=== PATIENT | male | born 1935 | race Caucasian/White ===

== ENCOUNTER → 2022-01-30 13:31 | Outpatient (CLI) | payer MEDICARE, BC, SELFPAY ==
--- NOTE | 2022-01-30 | DI.CT.S_ITS ---
PROCEDURE: CT ABDOMEN LIVER PROTOCOL INDICATIONS: Abnormal results of liver function studies TECHNIQUE: 4 phase scanning was performed. Non-contrast 5 mm axial sections acquired from the diaphragm to the iliac crests. Following the administration of intravenous contrast, 5 mm thick arterial-phase, portal venous-phase, and 5-minute delayed phase images were acquired through the liver. 5 mm thick coronal and sagittal reformats were performed. For radiation dose reduction, the following was used: automated exposure control, adjustment of mA and/or kV according to patient size. COMPARISON: None. FINDINGS: Image quality: Excellent. Lung bases: Scattered scarring/atelectasis. Liver: No suspicious mass. Other solid organs: Gallbladder is under distended. No biliary ductal dilation. Pancreas is within normal limits. There is a duodenal diverticulum adjacent to the ampulla. Normal spleen size. No adrenal nodules. Dominant right renal simple cyst. Bosniak 1 and 2 renal lesions are present, for which no dedicated followup is necessary per 2019 proposed guidelines. There are punctate renal calculi. No hydronephrosis. Incidental note of a 1.3 cm enhancing left upper pole renal mass. The renal vein is patent. Nodes and vessels: No abdominal aortic aneurysm. There are atherosclerotic calcifications. No pathologic adenopathy by size criteria. Bowel and peritoneum: No pathologic ascites. There is a moderate hiatal hernia. No bowel obstruction. Bones: No acute or suspicious osseous findings. There are degenerative changes. Miscellaneous: No ventral hernias. IMPRESSION: No significant CT abnormality of the liver. No explanation identified for LFT abnormalities. Incidentally noted 1.3 cm left upper pole renal mass, with most concerning differential possibility being renal cell carcinoma. The left renal vein is patent at this time. Other incidental findings above. Dictated by: Mahesh Fisher M.D. on 01/30/2022 at 16:44 Approved by: Mahesh Fisher M.D. on 01/30/2022 at 16:49
== END ==
PROVIDERS: Family Provider Family Medicine; PCP Internal Medicine; Referring Provider Internal Medicine; Visit Provider Internal Medicine
DX: N28.89 Other specified disorders of kidney and ureter (principal); R94.5 Abnormal results of liver function studies
CPT/HCPCS: 74170; Q9967

== ENCOUNTER → 2022-05-02 14:44 | Outpatient (CLI) | payer MEDICARE, BC, SELFPAY ==
[2022-05-02 15:36] LABS: Estimated Glomerular Filt Rate 51 mL/min (>60)
== END ==
PROVIDERS: Family Provider Family Medicine; PCP Internal Medicine; Referring Provider Radiology Diagnostic Radiology; Visit Provider Radiology Diagnostic Radiology
DX: R94.5 Abnormal results of liver function studies (principal)
CPT/HCPCS: 36415; 82565

== ENCOUNTER → 2022-05-20 13:03 | Outpatient (CLI) | payer MEDICARE, BC, SELFPAY ==
--- NOTE | 2022-05-20 | DI.CT.S_ITS ---
PROCEDURE: CT ABDOMEN LIVER PROTOCOL INDICATIONS: ABNORMAL LFT'S TECHNIQUE: 4 phase scanning was performed. Non-contrast 5 mm axial sections acquired from the diaphragm to the iliac crests. Following the administration of intravenous contrast, 5 mm thick arterial-phase, portal venous-phase, and 5-minute delayed phase images were acquired through the liver. 5 mm thick coronal and sagittal reformats were performed. For radiation dose reduction, the following was used: automated exposure control, adjustment of mA and/or kV according to patient size. COMPARISON: [facility], CT, CT ABDOMEN LIVER PROTOCOL, 01/30/2022, 13:55. FINDINGS: Image quality: Excellent. Lung bases: Mild scarring in the lingula. Heart size is normal. Moderate hiatal hernia. Liver: No steatosis. Smooth contour. Other solid organs: Gallbladder is unremarkable. Biliary system is non dilated. Pancreas is normal in morphology. Spleen is normal in size and enhancement. No adrenal nodules. Both kidneys demonstrate normal size and enhancement. Punctate, nonobstructing stone in the inferior pole of the right kidney. Solid, enhancing mass in the superior pole of the left kidney measuring 1.7 cm. Nodes and vessels: No retroperitoneal or mesenteric adenopathy by size criteria. Aorta and inferior vena cava are normal in size. Bowel and peritoneum: Unenhanced bowel loops are normal in caliber. No free fluid or air. Bones: No suspicious bony lesions. No vertebral body compression fractures. Miscellaneous: No ventral hernias. IMPRESSION: 1. No acute liver findings to suggest elevated LFTs. No steatosis. 2. Enhancing mass along the superior pole of the left kidney measuring 1.7 cm in, renal cell carcinoma until proven otherwise. Recommend urology referral if not artery performed. Dictated by: Aristeo Herrera M.D. on 05/20/2022 at 16:19 Approved by: Aristeo Herrera M.D. on 05/20/2022 at 16:24
== END ==
PROVIDERS: Family Provider Family Medicine; PCP Internal Medicine; Referring Provider Internal Medicine; Visit Provider Internal Medicine
DX: C64.2 Malignant neoplasm of left kidney, except renal pelvis; R79.89 Other specified abnormal findings of blood chemistry
CPT/HCPCS: 74170; Q9967

== ENCOUNTER → 2022-05-21 12:59 | Outpatient (CLI) | payer MEDICARE, BC, SELFPAY ==
--- NOTE | 2022-05-21 | DI.RAD.S_ITS ---
PROCEDURE: XR T AND L SPINE 4 TO 5 VIEWS INDICATIONS: SCOLIOSIS EXAM TECHNIQUE: 2 views acquired of the thoracolumbar spine. COMPARISON: [facility], CR, XR THORACIC SPINE 2 VIEWS, 05/17/2019, 14:30. FINDINGS: Bones: No acute fractures or dislocations. Loss of height and multiple thoracic spine vertebral bodies is stable compared to prior exam. No acute vertebral body compression fracture. Mild L4-L5 anterolisthesis secondary to facet hypertrophy. Mild convex right curvature of the thoracic spine. Mild convex left curvature of the lumbar spine. Visualized inferior ribs appear intact. No suspicious bony lesions. Moderate degenerative disc changes noted throughout the thoracic spine. Mild facet hypertrophy throughout the thoracic spine. Soft tissues: No suspicious soft tissue calcifications. Left chest wall cardiac pacer. IMPRESSION: 1. Multilevel degenerative disc disease. 2. Multilevel facet arthropathy. 3. No fracture. No acute osseous lesion. If symptoms and/or clinical suspicion for pathology persists, evaluation with MRI should be considered for further assessment. 4. Mild convex right thoracic spine and mild convex left lumbar spine curvature. 5. Grade 1 L4-L5 degenerative spondylolisthesis. Dictated by: Shruthi Green MD, PhD on 05/21/2022 at 14:12 Approved by: Shruthi Green MD, PhD on 05/21/2022 at 14:15
== END ==
PROVIDERS: Family Provider Family Medicine; PCP Internal Medicine; Referring Provider Internal Medicine; Visit Provider Internal Medicine
DX: M41.9 Scoliosis, unspecified (principal); M51.34 Other intervertebral disc degeneration, thoracic region; M47.814 Spondylosis without myelopathy or radiculopathy, thoracic region; Z95.0 Presence of cardiac pacemaker
CPT/HCPCS: 72083

== ENCOUNTER → 2022-09-19 11:19 | Outpatient (CLI) | payer MEDICARE, BC, SELFPAY ==
--- NOTE | 2022-09-19 | DI.CT.S_ITS ---
PROCEDURE: CT ABDOMEN RENAL PROTOCOL INDICATIONS: RENAL MASS TECHNIQUE: Optional 5 mm thick noncontrast images acquired from the diaphragm to the iliac crests. After the administration of intravenous contrast, 5 mm thick images again acquired from the diaphragm to the iliac crests in the arterial and urographic phases. 5 mm thick coronal and sagittal reformats were then acquired. For radiation dose reduction, the following was used: automated exposure control, adjustment of mA and/or kV according to patient size. COMPARISON: None. FINDINGS: Image quality: Excellent. Lung bases: Lung bases are clear. Heart size is normal. Moderate hiatal hernia Genitourinary: Enhancing, 1.7 x 1.6 x 1.7 cm exophytic mass on the superior pole of the left kidney. Bilateral renal cystic lesions without perceived complexity. No retroperitoneal adenopathy. No extension beyond the perirenal fascia. Renal vein is widely patent. Punctate nonobstructing right-sided nephrolithiasis. No hydronephrosis. Other solid organs: Liver is normal in size and enhancement. Gallbladder is unremarkable . Biliary system is non dilated. Pancreas enhances normally. Spleen is normal in size and enhancement. No adrenal nodules. Peritoneum and bowel: Unenhanced bowel loops are normal in wall thickness and caliber. No free fluid or air. Nodes and vessels: No retroperitoneal or mesenteric adenopathy by size criteria. Aorta and inferior vena cava are normal in caliber. Bones: No suspicious bony lesions. No vertebral body compression fractures. Miscellaneous: No ventral hernias. IMPRESSION: Enhancing, 1.7 x 1.6 x 1.7 cm exophytic mass on the superior pole of the left kidney. No retroperitoneal adenopathy. No extension beyond the perirenal fascia. Renal vein is widely patent. Findings are most consistent with renal cell carcinoma. Recommend urology referral. Dictated by: Aristeo Herrera M.D. on 09/19/2022 at 12:58 Approved by: Aristeo Herrera M.D. on 09/19/2022 at 13:03
[2022-09-19 11:55] LABS: Estimated Glomerular Filt Rate > 60 mL/min (>60)
== END ==
PROVIDERS: Radiology Diagnostic Radiology; Family Provider Family Medicine; PCP Internal Medicine; Referring Provider Internal Medicine; Visit Provider Internal Medicine
DX: N28.89 Other specified disorders of kidney and ureter (principal)
CPT/HCPCS: 36415; 74170; 82565

== ENCOUNTER → 2023-04-08 11:53 | Outpatient (CLI) | payer MEDICARE, BC, SELFPAY ==
--- NOTE | 2023-04-08 | DI.CT.S_ITS ---
PROCEDURE: CT ABDOMEN RENAL PROTOCOL INDICATIONS: left renal mass TECHNIQUE: Optional 5 mm thick noncontrast images acquired from the diaphragm to the iliac crests. After the administration of intravenous contrast, 5 mm thick images again acquired from the diaphragm to the iliac crests in the arterial and urographic phases. 5 mm thick coronal and sagittal reformats were then acquired. For radiation dose reduction, the following was used: automated exposure control, adjustment of mA and/or kV according to patient size. COMPARISON: [facility], CT, CT ABDOMEN RENAL PROTOCOL, 09/19/2022, 12:05. FINDINGS: Image quality: Diagnostic Lower chest: Basal scarring and atelectasis again seen. Partially visualized cardiac electrode leads. Postsurgical changes at the gastroesophageal junction with a [id number] hernia, as before. Liver: Liver is unremarkable. Gallbladder and biliary system: Unremarkable, nondilated Pancreas: Ksch-an-rjycvado atrophy. No ductal dilation Spleen: Nonenlarged Adrenals: No nodules Kidneys: There is scattered cysts, the largest in the right upper pole as before measuring up to 9 centimeters. No hydronephrosis. In enhancing lesion in the left upper pole measures 1.7 centimeters, unchanged compared to September 2022. This is mildly exophytic and does not extend beyond the anterior pararenal fascia. The left renal vein is patent. The collecting system shows no definite filling defects. Right nonobstructing renal calculus. Vessels and lymph nodes: The main portal vein is patent. Atherosclerotic calcifications without abdominal aortic aneurysm. No pathologic lymph nodes by size criteria. Bowel and peritoneum: No evidence of small bowel obstruction. There is no pathologic ascites. Body wall: Unremarkable Bones: Degenerative changes. Small sclerotic lesions, for example in the right posterior iliac bone, may represent bone islands and sequela of prior degenerative changes. No overtly suspicious finding. IMPRESSION: Left upper pole enhancing renal mass is unchanged compared to September of 2022. No lymphadenopathy by size criteria. The left renal vein is patent. Other findings as above. Dictated by: Mahesh Fisher M.D. on 04/08/2023 at 14:03 Approved by: Mahesh Fisher M.D. on 04/08/2023 at 14:08
[2023-04-08 12:42] LABS: Estimated Glomerular Filt Rate > 60 mL/min (>60)
== END ==
PROVIDERS: Radiology Diagnostic Radiology; Family Provider Family Medicine; PCP Internal Medicine; Referring Provider Urology; Visit Provider Urology
DX: N28.89 Other specified disorders of kidney and ureter (principal)
CPT/HCPCS: 36415; 74170; 82565

== ENCOUNTER → 2025-03-15 14:42 | Outpatient (CLI) | payer MEDICARE, BC, SELFPAY ==
[2025-03-15 15:20] LABS: Alanine Aminotransferase 43 IU/L (<50); Albumin 4.1 g/dL (3.5-5.0); Albumin Globulin Ratio 1.2 (1.0-2.8); Alkaline Phosphatase 112 U/L (38-126); Blood Urea Nitrogen 29 mg/dL (9-20); Calcium 9.4 mg/dL (8.4-10.2); Carbon Dioxide 26 mmol/L (22-32); Chloride 107 mmol/L (98-107); Estimated Glomerular Filt Rate 58 mL/min (>60); Globulin 3.4 g/dL (1.7-4.1); Glucose 139 mg/dL (70-99); HEMOLYSIS < 15 (0-50); Potassium 4.5 mmol/L (3.4-5.1); Sodium 140 mmol/L (137-145); Total Protein 7.5 g/dL (6.3-8.2)
== END ==
PROVIDERS: PCP Internal Medicine; Referring Provider Internal Medicine Cardiovascular Disease; Visit Provider Internal Medicine Cardiovascular Disease
DX: R17 Unspecified jaundice (principal)
CPT/HCPCS: 36415; 80053

== ENCOUNTER 2025-04-05 15:25 | Emergency (ER) | payer MEDICARE, BC, SELFPAY ==
[2025-04-05] VITALS (26 sets, daily range): BP systolic 97–130; BP diastolic 54–69; PULSE 69–98; RESP 18–36; TEMP 36.7–36.8; O2SAT 92–96; BMI 28.5
--- NOTE | 2025-04-05 15:46 | DI.RAD.S_ITS ---
PROCEDURE: XR CHEST 1V INDICATIONS: Shortness of breath TECHNIQUE: One view of the chest was acquired. COMPARISON: None. FINDINGS: Surgical changes and devices: Left-sided cardiac pacer device is in place. Lungs and pleura: Lungs are clear. No pleural effusions or pneumothorax. Mediastinum: Mediastinal contours appear normal. Heart size is normal. Bones and chest wall: No suspicious bony lesions. Overlying soft tissues appear unremarkable. IMPRESSION: No acute cardiopulmonary abnormalities or focal consolidation. Dictated by: Herminio Buchanan M.D. on 04/05/2025 at 16:41 Approved by: Herminio Buchanan M.D. on 04/05/2025 at 16:41
--- NOTE | 2025-04-05 16:02 | ED_ITS ---
HPI - SOB/Dyspnea General Chief Complaint: Shortness of Breath/Dyspnea Stated Complaint: PC ref, cardioversion Time Seen by Provider: 04/05/25 16:02 Source: patient Mode of arrival: Ambulatory Limitations: no limitations History of Present Illness HPI Narrative: 89-year-old gentleman history of atrial fibrillation on metoprolol and Eliquis presents with shortness of breath and atrial fibrillation according to patient on his BP machine. He denies any active chest pain, back pain, abdominal pain, nausea, vomiting, leg pain, leg swelling, chills, body aches. Other than what is stated 14 point review system is negative. Related Data Allergies Allergy/AdvReac Type Severity Reaction Status Date / Time nitroglycerin AdvReac Severe Unconscious Verified 04/05/25 15:34 Review of Systems Review of Systems ROS Unobtainable: All systems reviewed & are unremarkable except as noted in HPI and below Patient History Social History Smoking Status: Never smoker Smoking Status: Never smoker Exam Narrative Exam Narrative: GENERAL: [89] year old patient appears stated age. Well-developed patient, in mild distress. HEAD: Atraumatic. Normocephalic. EYES: Pupils equal round and reactive. Extraocular motions intact. No scleral icterus. No injection or drainage. ENT: Nose without bleeding, purulent drainage. Throat without erythema, tonsillar hypertrophy or exudate. Airway patent. NECK: Trachea midline. Non tender CARDIOVASCULAR: irregularly irregular rate and rhythm without murmurs, gallops, or rubs. RESPIRATORY: Clear to auscultation. Breath sounds equal bilaterally. No wheezes, rales, or rhonchi. GASTROINTESTINAL: Abdomen soft, non-tender, nondistended. EXTREMITIES: No edema or joint tenderness. BACK: Nontender without deformity or crepitance. No flank tenderness. NEURO: AOx3. SKIN: No rash or erythema of visible areas Initial Vital Signs Initial Vital Signs: Vital Signs Temperature 98.1 F 04/05/25 15:34 Pulse Rate 82 04/05/25 15:34 Respiratory Rate 18 04/05/25 15:34 Blood Pressure 116/69 04/05/25 15:34 Pulse Oximetry 95 04/05/25 15:34 Oxygen Delivery Method Room Air 04/05/25 15:34 Course Orders Ordered: ED Orders 04/05/25 15:46 XR chest 1V Stat EKG-12 Lead Stat Measure peak expiratory flow STAT RT Consult Eval and Treat STAT 04/05/25 16:05 Comprehensive Metabolic Panel Stat Lactate (Lactic Acid) Stat NT-proBNP (BNP-Adult 18+) Stat Prothrombin Time INR Stat Troponin I Stat 04/05/25 17:49 Complete Blood Count AUTO DIFF Stat 04/05/25 19:00 Troponin I Stat Discontinued Medications Diltiazem HCl (Diltiazem 25 Mg/5 Ml Sdv) 25 mg IV NOW ONE Stop: 04/05/25 18:02 Last Admin: 04/05/25 18:35 Dose: 25 mg Documented By: FLEX Vital Signs Vital signs: Vital Signs - 8 hr 04/05/25 15:34 04/05/25 18:10 04/05/25 18:10 Temperature 98.1 F Pulse Rate 82 98 H Respiratory Rate 18 Blood Pressure 116/69 107/67 Pulse Oximetry 95 96 Oxygen Delivery Method Room Air 04/05/25 18:30 04/05/25 18:30 04/05/25 18:35 Temperature Pulse Rate 73 81 Respiratory Rate Blood Pressure 115/66 115/66 Pulse Oximetry 95 Oxygen Delivery Method 04/05/25 18:39 04/05/25 18:39 04/05/25 18:49 Temperature Pulse Rate 89 Respiratory Rate 24 Blood Pressure 118/64 99/54 L Pulse Oximetry 95 Oxygen Delivery Method 04/05/25 18:49 04/05/25 18:51 04/05/25 18:51 Temperature Pulse Rate 69 69 Respiratory Rate 23 19 Blood Pressure 97/59 L Pulse Oximetry 93 93 Oxygen Delivery Method 04/05/25 18:55 04/05/25 18:55 04/05/25 19:00 Temperature Pulse Rate 69 69 Respiratory Rate 22 20 Blood Pressure 103/60 Pulse Oximetry 92 94 Oxygen Delivery Method 04/05/25 19:00 Temperature Pulse Rate Respiratory Rate Blood Pressure 110/63 Pulse Oximetry Oxygen Delivery Method MDM - SOB/Dyspnea Lab Data 04/05/25 17:49 04/05/25 16:05 Labs: Lab Results 04/05/25 04/05/25 04/05/25 Range/Units 16:05 17:49 19:00 WBC 7.9 (4.5-11.0) X10^3/uL RBC 4.27 L (4.5-5.9) X10^6/uL Hgb 14.2 (13.5-17.5) g/dL Hct 41.1 (41-53) % MCV 96.2 (80-100) fL MCH 33.2 (26-34) PG MCHC 34.5 (30-36) % RDW 16.1 H (11.6-14.8) % Plt Count 137 L (150-400) X10^3/uL Neut % (Auto) 60.2 (50-75) % Lymph % (Auto) 29.2 (25-40) % Preston % (Auto) 8.0 (3-14) % Eos % (Auto) 2.0 (2-4) % Baso % (Auto) 0.6 (0-2) % Neut # (Auto) 4800 (4513-6411) /uL Lymph # (Auto) 2300 (7408-9649) /uL Preston # (Auto) 600 (0-900) /uL Eos # (Auto) 200 (0-450) /uL Baso # (Auto) 0 (0-100) /uL PT 15.1 H (9.4-12.5) SECONDS INR 1.3 (0.9-1.3) Sodium 138 (137-145) mmol/L Potassium 4.2 (3.4-5.1) mmol/L Chloride 109 H (98-107) mmol/L Carbon Dioxide 20 L (22-32) mmol/L BUN 27 H (9-20) mg/dL Creatinine 1.25 (0.66-1.25) mg/dL Estimated GFR 55 L (>60) mL/min BUN/Creatinine Ratio 21.6 (6-22) Glucose 180 H (70-99) mg/dL Lactate 1.3 (0.7-2.1) mmol/L Calcium 9.1 (8.4-10.2) mg/dL Total Bilirubin 0.5 (0.2-1.3) mg/dL AST 33 (17-59) IU/L ALT 30 (<50) IU/L Alkaline Phosphatase 135 H (38-126) U/L Troponin I 0.018 0.017 (0.01-0.034) ng/mL NT-Pro-B Natriuret Pep 1650 H (<450) pg/mL Total Protein 7.1 (6.3-8.2) g/dL Albumin 3.8 (3.5-5.0) g/dL Globulin 3.3 (1.7-4.1) g/dL Albumin/Globulin Ratio 1.2 (1.0-2.8) Imaging Data Chest x-ray: Radiologist's Impression: [address] [address] XRay Report Signed Patient: Danyel Espinoza MR#: [id number] : 1935 Acct:[id number] Age/Sex: 89 / M Date of Service: 04/05/25 Loc: ED Accession Number: [id number] Procedure: XR chest 1V Ordering Provider: Halley Yoo D.O. PROCEDURE: XR CHEST 1V INDICATIONS: Shortness of breath TECHNIQUE: One view of the chest was acquired. COMPARISON: None. FINDINGS: Surgical changes and devices: Left-sided cardiac pacer device is in place. Lungs and pleura: Lungs are clear. No pleural effusions or pneumothorax. Mediastinum: Mediastinal contours appear normal. Heart size is normal. Bones and chest wall: No suspicious bony lesions. Overlying soft tissues appear unremarkable. IMPRESSION: No acute cardiopulmonary abnormalities or focal consolidation. ECG Data Interpretation: V paced HR 70 MDM Narrative Medical decision making narrative: All lab work vital signs nurse triage note medication list previous ER visits in all imaging studies reviewed. EKG showed atrial flutter 101 hr s/p diltiazem 25mg IV x1 now V paced. NO cardioversion. 2 sets troponin negative. Cxr no acute process. Differential diagnosis AFib a flutter RVR. While patient follow up with public speaking professor. Case d/w no cardioversion after diltiazem. Discharge Plan Departure Patient Disposition: Home Clinical Impression: Atrial fibrillation and flutter Instructions: DI for Atrial Fibrillation Activity Restrictions/Additional Instructions: Return with new or worsening symptoms. Follow up with public speaking professor next week. Referrals: Ainsley Zapata MD [Primary Care Provider, [facility]] Stand Alone Forms: Patient Portal/API
--- NOTE | 2025-04-05 16:14 | EKG_ITS ---
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
[2025-04-05 16:29] LABS: INR 1.3 (0.9-1.3); Prothrombin Time 15.1 SECONDS (9.4-12.5)
[2025-04-05 16:33] LABS: Alanine Aminotransferase 30 IU/L (<50); Albumin 3.8 g/dL (3.5-5.0); Albumin Globulin Ratio 1.2 (1.0-2.8); Alkaline Phosphatase 135 U/L (38-126); Blood Urea Nitrogen 27 mg/dL (9-20); Calcium 9.1 mg/dL (8.4-10.2); Carbon Dioxide 20 mmol/L (22-32); Chloride 109 mmol/L (98-107); Estimated Glomerular Filt Rate 55 mL/min (>60); Globulin 3.3 g/dL (1.7-4.1); Glucose 180 mg/dL (70-99); HEMOLYSIS 19 (0-50); Lactate (Lactic Acid) 1.3 mmol/L (0.7-2.1); Potassium 4.2 mmol/L (3.4-5.1); Sodium 138 mmol/L (137-145); Total Protein 7.1 g/dL (6.3-8.2)
[2025-04-05 16:44] LABS: NT-proBNP (BNP-Adult 18+) 1650 pg/mL (<450); Troponin I 0.018 ng/mL (0.01-0.034)
[2025-04-05 18:22] LABS: Add Manual Diff / Slide Review NO; Hematocrit 41.1 % (41-53); Hemoglobin 14.2 g/dL (13.5-17.5); Lymphocytes Absolute Auto 2300 /uL (1100-4500); Mean Corpuscular HGB Conc 34.5 % (30-36); Mean Corpuscular Hemoglobin 33.2 PG (26-34); Mean Corpuscular Volume 96.2 fL (80-100); Platelet Count 137 X10^3/uL (150-400)
--- NOTE | 2025-04-05 18:49 | PC.NURSE ---
Verified 25mg Diltiazem order with Dr Renee prior to administration. Reviewed vitals prior.
--- NOTE | 2025-04-05 18:50 | EKG_ITS ---
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
[2025-04-05 19:32] LABS: Troponin I 0.017 ng/mL (0.01-0.034)
== END 2025-04-05 20:51 | disposition home or self-care (01) ==
PROVIDERS: Emergency Medicine; Emergency Provider Family Medicine; PCP Family Medicine
DX: I48.92 Unspecified atrial flutter (principal); I48.91 Unspecified atrial fibrillation
CPT/HCPCS: 36415; 71045; 80053; 83605; 83880; 84484; 85025; 85610; 93005; 93010; 96374; 99284